=== PATIENT | female | born 1995 | race Caucasian/White ===

== ENCOUNTER 2017-06-17 10:19 | Emergency (ER) | payer OTHER ==
[2017-06-17 10:26] VITALS: BP 127/79; TEMP 98.2
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
[2017-06-17 11:34] VITALS: PULSE 78; RESP 18; O2SAT 97
== END 2017-06-17 11:35 | disposition home or self-care (01) ==
DX: S00.81XA Abrasion of other part of head, initial encounter (principal); W01.198A Fall on same level from slipping, tripping and stumbling with subsequent striking against other object, initial encounter; Y99.8 Other external cause status; Y93.01 Activity, walking, marching and hiking